=== PATIENT | male | born 1970 | race Hispanic/Latino ===

== ENCOUNTER 2022-06-10 14:06 | Emergency (ER) | payer MEDICARE ==
[2022-06-10 14:35] VITALS: BP 131/81
[2022-06-10] MEDS ORDERED: IBUP-2070 PO (15:55)
[2022-06-10] MEDS ORDERED: IBUPROFEN 600 MG TABLET PO ONE (16:00)
[2022-06-10] MEDS ORDERED: IBUPROFEN 600 MG TABLET ONE (16:15)
== END 2022-06-10 16:56 | disposition home or self-care (01) ==
LOC: EDH 14:06
DX: S82.401A Unspecified fracture of shaft of right fibula, initial encounter for closed fracture (principal); S80.212A Abrasion, left knee, initial encounter; S80.211A Abrasion, right knee, initial encounter; W19.XXXA Unspecified fall, initial encounter; Y93.89 Activity, other specified; Y92.89 Other specified places as the place of occurrence of the external cause; Y99.8 Other external cause status
CPT/HCPCS: 73610